=== PATIENT | female | born 1995 | race Hispanic/Latino ===

== ENCOUNTER 2018-03-30 16:47 | Emergency (ER) | payer BC ==
[2018-03-30] MEDS: Sodium Chloride 0.9% 1,000 ML IV SCH (18:27)
[2018-03-30 19:00] LABS: BASO % 0.2 % (0.0-2.0); HEMOGLOBIN 12.4 g/dL (12.0-16.0); LYMPH # 0.6 K/uL (1.0-4.3); LYMPH % 7.4 % (20.0-40.0); MEAN CELL VOLUME 93.1 fl (81.0-99.0); MEAN CORPUSCULAR HEMOGLOBIN 30.5 pg (27.0-31.0); MEAN CORPUSCULAR HGB CONC 32.8 g/dL (33.0-37.0); MEAN PLATELET VOLUME 8.8 fl (7.2-11.7); MONO # 0.3 K/uL (0.0-0.8); NEUT # 7.4 K/uL (1.8-7.0); NEUT % 88.4 % (50.0-75.0); PLATELET COUNT 250 K/uL (130-400); RBC 4.08 Mil/uL (3.80-5.20); RED CELL DISTRIBUTION WIDTH 13.4 % (11.5-14.5); WHITE BLOOD COUNT 8.3 K/uL (4.8-10.8)
[2018-03-30 19:12] LABS: ALB/GLOB RATIO 1.2 (1.0-2.1); ALBUMIN 4.3 g/dL (3.5-5.0); ALT/SGPT 29 U/L (9-52); AST/SGOT 25 U/L (14-36); BLOOD UREA NITROGEN 12 mg/dl (7-17); CALCIUM 9.2 mg/dL (8.4-10.2); GFR AFRICAN-AMERICAN > 60; GFR NON-AFRICAN AMERICAN > 60
[2018-03-30 19:54] VITALS: RESP 16
[2018-03-30 20:42] LABS: LARGE PLATELETS PRESENT; LYMPHOCYTE 8 % (20-50); MONOCYTE 4 % (0-10); NEUTROPHIL 88 % (42-75); PLATELET ESTIMATE NORMAL (NORMAL); TOTAL CELLS COUNTED 100; TOXIC GRANULATION PRESENT
[2018-03-30 20:55] VITALS: BP 102/52; PULSE 86; TEMP 98.3; O2SAT 98
--- NOTE | 2018-03-30 22:52 | ED PDOC ---
HPI: Abdomen Time Seen by Provider: 03/30/18 17:04 Chief Complaint (Nursing): Abdominal Pain Chief Complaint (Provider): Abdominal Pain History Per: Patient History/Exam Limitations: no limitations Onset/Duration Of Symptoms: Days (x1) Current Symptoms Are (Timing): Still Present Additional Complaint(s): Patient complains of right upper abdominal pain, associated with chills, tactile fever and malaise ongoing since 0700 earlier today. Otherwise: (-) nausea, (-) vomiting, (-) diarrhea, (-) dyuria or hematuria, (-) chest pain, (- ) shortness of breath, (-) cough. Has no history of prior abdominal surgery. Patient also reports a syncopal episode around 1400 while at work today, in which, she went to an Urgent Care and advised to go to ED for further evaluation. She states she did not pass out because of pain but admits that she did not eat all day. Patient had recently returned from a cruise to [place] 3 days ago and has been taking probiotics for her constipation, ongoing since return. She also has (+) sick contact from her boyfriend. Of note, patient's temperature is documented as 100.7 degrees in triage. LMP: 02/16/18 (patient is on BC) PMD: none provided Past Medical History Reviewed: Historical Data, Nursing Documentation, Vital Signs Vital Signs: Last Vital Signs Temp 98.3 F 03/30/18 20:25 Pulse 86 03/30/18 20:25 Resp 16 03/30/18 20:25 BP 102/52 L 03/30/18 20:25 Pulse Ox 98 03/30/18 20:25 - Medical History PMH: No Chronic Diseases - Surgical History Surgical History: No Surg Hx - Family History Family History: States: Unknown Family Hx - Social History Current smoker - smoking cessation education provided: No Alcohol: None Drugs: Denies - Home Medications Home Medications: Ambulatory Orders Medication Instructions Recorded Acetaminophen [Acetaminophen 8 650 mg PO Q8 PRN #24 tablet.er 03/30/18 Hour] Ibuprofen [Motrin Tab] 600 mg PO Q6 PRN #20 tab 03/30/18 - Allergies Allergies/Adverse Reactions: Allergies Allergy/AdvReac Type Severity Reaction Status Date / Time Penicillins Allergy RASH Verified 03/30/18 16:57 Review of Systems ROS Statement: Except As Marked, All Systems Reviewed And Found Negative Constitutional: Positive for: Fever (tactile), Chills, Malaise Cardiovascular: Negative for: Chest Pain Respiratory: Negative for: Cough, Shortness of Breath Gastrointestinal: Positive for: Abdominal Pain (upper right), Constipation. Negative for: Nausea, Vomiting, Diarrhea Genitourinary Female: Negative for: Dysuria, Hematuria Neurological: Positive for: Other (syncope) Physical Exam - Reviewed Nursing Documentation Reviewed: Yes Vital Signs Reviewed: Yes - Physical Exam Comments: GENERAL APPEARANCE: Patient is awake, alert, oriented x 3, in no acute distress and resting comfortably. SKIN: Warm, dry; (-) cyanosis. EYES: (-) conjunctival pallor. ENMT: Mucous membranes moist. NECK: (-) tenderness, (-) stiffness, (-) lymphadenopathy. CHEST AND RESPIRATORY: (-) rales, (-) rhonchi, (-) wheezes; breath sounds equal bilaterally. HEART AND CARDIOVASCULAR: (-) irregularity; (-) murmur, (-) gallop. ABDOMEN AND GI: Soft; (+) epigastric tenderness; (-) palpable mass. BACK: (-) CVA tenderness, (-) mild spasm EXTREMITIES: (-) deformity. Distal pulses good bilaterally. NEURO AND PSYCH: Mental status as above. Intact sensation bilaterally - Laboratory Results Result Diagrams: 03/30/18 18:37 03/30/18 18:37 - ECG O2 Sat by Pulse Oximetry: 98 (RA) Pulse Ox Interpretation: Normal Medical Decision Making Medical Decision Making: Initial Impression: Syncope; Abdominal pain Initial Plan: * EKG * CMP * CBC * Bentyl 20mg PO * NS 1,000ml IV per 1,000mls/hr * Toradol 30mg IVP * Tylenol 650mg PO * Blood culture Time: 2009 --EKG: NSR at 82 BMP. Normal QRS with no ST changes. Acute TC 415. Time: 2011 --Advised to follow up with primary care physician in 1-2 days without fail. Advised to take medication as prescribed. Return to the emergency room at any time for any new or worsening symptoms. Patient states she fully agrees with and understands discharge instructions. States that she agrees with the plan and disposition. Verbalized and repeated discharge instructions and plan. I have given the patient opportunity to ask any additional questions. Scribe Attestation: Documented by Peggy Robbins, acting as a scribe for Trice Goss PA-C. Provider Scribe Attestation: All medical record entries made by the Scribe were at my direction and personally dictated by me. I have reviewed the chart and agree that the record accurately reflects my personal performance of the history, physical exam, medical decision making, and the department course for this patient. I have also personally directed, reviewed, and agree with the discharge instructions and disposition. Disposition - Clinical Impression Clinical Impression: Fever, Abdominal pain, Syncope - Patient ED Disposition Is Patient to be Admitted: No Counseled Patient/Family Regarding: Studies Performed, Diagnosis, Need For Followup, Rx Given - Disposition Referrals: [facility] [Outside] Disposition: Routine/Home Disposition Time: 20:12 Condition: STABLE Additional Instructions: FOLLOW UP WITH PMD/CLINIC IN 1-2 DAYS WITHOUT FAIL. RETURN TO ED WITH ANY NEW OR WORSENING SYMPTOMS. Prescriptions: Acetaminophen [Acetaminophen 8 Hour] 650 mg PO Q8 PRN #24 tablet.er PRN Reason: Fever >100.4 F Ibuprofen [Motrin Tab] 600 mg PO Q6 PRN #20 tab PRN Reason: Pain, Moderate (4-7) Instructions: Syncope (Fainting), Fever, Adult (DC), Stomach Ache and Stomach Upset Forms: [facility] (Central African) Print Language: MACEDONIAN
--- NOTE | 2018-03-31 19:25 | CARD ---
APPROVED REPORT EKG Measurement Heart [id number] <Conclusion> Normal sinus rhythm Nonspecific T wave abnormality Abnormal ECG
== END 2018-03-30 20:25 | disposition home or self-care (01) ==
LOC: H.ER 16:47
DX: R10.9 Unspecified abdominal pain (principal); R50.9 Fever, unspecified; R55 Syncope and collapse; Z88.0 Allergy status to penicillin
CPT/HCPCS: 80053; 81025; 85025; 87040; 93005; 96374; 99284; J1885; J7040